=== PATIENT | female | born 1960 | race Caucasian/White ===

== ENCOUNTER 2021-05-23 20:16 | Emergency (ER) | payer MEDICAID ==
[~2021-05-23] VITALS: Ht 152.4 cm; Wt 100.1 kg
[2021-05-23] MEDS ORDERED: CEPH250T PO (23:31)
[2021-05-23] MEDS ORDERED: IBUP-1984 PO (23:31)
[2021-05-23] MEDS ORDERED: ibuprofen tablet 400 MG TABLET PO ONE (23:35)
[2021-05-23 23:50] VITALS: BP 132/60
== END 2021-05-23 23:51 | disposition home or self-care (01) ==
LOC: ER 20:21
DX: M79.672 Pain in left foot (principal); Z88.5 Allergy status to narcotic agent; Z79.2 Long term (current) use of antibiotics; Z79.899 Other long term (current) drug therapy
CPT/HCPCS: 73630; 99284

== ENCOUNTER 2021-05-28 20:08 | Emergency (ER) | payer MEDICAID ==
[~2021-05-28] VITALS: Ht 185.4 cm; Wt 84.1 kg
[~2021-05-28 20:08] MED LIST: CEPH250T PO; IBUP-1984 PO
== END 2021-05-28 21:28 | disposition home or self-care (01) ==
LOC: ER 20:09
DX: S90.852A Superficial foreign body, left foot, initial encounter (principal); X58.XXXA Exposure to other specified factors, initial encounter; Y93.89 Activity, other specified; Y92.89 Other specified places as the place of occurrence of the external cause; Y99.8 Other external cause status
CPT/HCPCS: 99282

== ENCOUNTER 2021-06-13 10:45 | Day surgery (SDC) | payer MEDICAID ==
[2021-06-08 10:16] LABS: BASOPHILS % (AUTO) 0.9 % (0-1); EOSINOPHILS # (AUTO) 0.1 X10'3 (0-0.9); EOSINOPHILS % (AUTO) 4.1 % (0-6); LYMPHOCYTES # (AUTO) 1.1 X10'3 (1.1-4.8); LYMPHOCYTES % (AUTO) 35.9 % (21-51); MEAN CORPUSCULAR HEMOGLOBIN 33.2 PG (27.0-31.0); MEAN CORPUSCULAR HGB CONC 34.2 g/dL (33.0-36.5); MEAN CORPUSCULAR VOLUME 97.1 FL (78-98); MEAN PLATELET VOLUME 9.1 FL (7.4-10.4); MONOCYTES # (AUTO) 0.5 X10'3 (0-0.9); MONOCYTES % (AUTO) 14.7 % (2-12); NEUTROPHILS # (AUTO) 1.4 X10'3 (1.8-7.7); NEUTROPHILS % (AUTO) 44.4 % (42-75); PRE OP HEMATOCRIT 41.5 % (35.0-45.0); PRE OP HEMOGLOBIN 14.2 g/dL (12.0-16.0); PRE OP PLATELET COUNT 117 X10'3 (140-440); RED BLOOD COUNT 4.28 X10'6 (4.20-5.60); RED CELL DISTRIBUTION WIDTH 13.6 % (11.5-14.5)
[2021-06-08 10:33] LABS: ALBUMIN 2.9 G/DL (3.4-5.0); ALBUMIN/GLOBULIN RATIO 0.6 (1.1-1.5); ALKALINE PHOSPHATASE 153 IU/L (46-116); BLOOD UREA NITROGEN 17 MG/DL (7-18); BUN/CREATININE RATIO 27.9 (6.6-38.0); CALCIUM 8.4 MG/DL (8.5-10.1); CHLORIDE 110 MMOL/L (99-107); CREATININE 0.61 MG/DL (0.40-0.90); PRE OP ALT 28 U/L (30-65); PRE OP ANION GAP 7 (8-16); PRE OP AST 41 U/L (10-37); PRE OP BILIRUB, TOTAL 0.5 MG/DL (0.0-1.0); PRE OP GLUCOSE 87 MG/DL (70-104); PRE OP SODIUM 143 MMOL/L (135-145); TOTAL CARBON DIOXIDE 25.9 MMOL/L (24-32); TOTAL PROTEIN 7.8 G/DL (6.4-8.2); eGFR > 90 ML/MIN
[2021-06-08 10:34] LABS: PRE OP POTASSIUM 4.7 MMOL/L (3.4-5.1)
[~2021-06-13] VITALS: Ht 152.4 cm; Wt 105.1 kg
[2021-06-13] MEDS: ringers solution, lacted 1,000 ML IV SCH ×2 (05:00→11:06)
[~2021-06-13 10:45] MED LIST changes: +ALBU17AE26 INH; +CEPH-585 PO; -CEPH250T PO; -IBUP-1984 PO; +LEVO75TA7 PO; +TRAM50TA2 PO; +albuterol 2.5 MG/3 ML nebule NEB PRN; +cefazolin/dext.iso 2gm/100ml IV ONE; +famotidine 20mg tablet PO ONE
[2021-06-13 11:13] VITALS: BP 155/91
[2021-06-13 11:49] LABS: PRE OP PARTIAL THROMB. TIME 27 SECONDS (22-32)
[2021-06-13] MEDS ORDERED: HYDROcodone/acetaminophen 10/325mg tab PO ONE (12:55)
[2021-06-13] MEDS ORDERED: vancomycin 1,000mg inj ONE (13:21)
[2021-06-13] MEDS ORDERED: BUPIVAcaine/PF 2.5mg/ml (0.25%) 10ml vial ONE (13:21)
[2021-06-13] MEDS ORDERED: sevoflurane 250ml liquid IH ONE (14:05)
[2021-06-13] MEDS ORDERED: LIDOcaine 1%/PF 5ML 10 MG/ML VIAL ONE (14:05)
[2021-06-13] MEDS ORDERED: midazolam 1 mg/ML 2ml injection ONE (14:12)
[2021-06-13] MEDS ORDERED: LIDOcaine 2% (20mg/ml) 5ml vial ONE (14:26)
[2021-06-13] MEDS ORDERED: propofol inj 20 ML IV ONE ×2 (14:26→14:38)
[2021-06-13] MEDS ORDERED: ringers solution, lacted 1,000 ML IV SCH (14:30)
[2021-06-13] MEDS ORDERED: ondansetron/PF 4mg/2ml inj IV PRN (14:30)
[2021-06-13] MEDS ORDERED: morphine 4 MG/ML inj SYRINge IV PRN (14:30)
[2021-06-13] MEDS ORDERED: fentaNYL/PF 50MCG/1 ML 2ML syringe IV PRN ×2 (14:30)
[2021-06-13] MEDS ORDERED: labetalol 20mg/4ml (5mg/ml) syringe IV PRN (14:30)
[2021-06-13] MEDS ORDERED: morphine 2 MG/ML inj. syringe IV PRN (14:30)
[2021-06-13] MEDS ORDERED: proCHLORperazine 10 MG/2 ml inj IV PRN (14:30)
[2021-06-13] MEDS ORDERED: hydrALAZINE 20mg/ml inj. IV PRN (14:30)
[2021-06-13] MEDS ORDERED: acetaminophen 1,000mg/100ml IV 100 ML IV PRN (14:30)
[2021-06-13] MEDS ORDERED: fentaNYL/PF 50MCG/1 ML 2ML syringe ONE (14:38)
[2021-06-13] MEDS ORDERED: ondansetron/PF 4mg/2ml inj ONE (14:42)
[2021-06-13] MEDS ORDERED: dexamethasone sod phosphate 4mg/ml inj. ONE (14:43)
[2021-06-13 14:55] VITALS: BP 116/91
--- NOTE | 2021-06-13 14:55 | NUR ---
ADMITTED TO PACU FROM OR ACCOMPANIED BY ANESTHESIA. INTIAL PHYSICAL ASSESSMENT DONE AND RECORDED. REPORT RECEIVED FROM ANESTHESIA.
[2021-06-13 15:05] VITALS: BP 109/69
[2021-06-13 15:15] VITALS: BP 125/79
[2021-06-13 15:25] VITALS: BP 115/78
--- NOTE | 2021-06-13 15:30 | NUR ---
DISCHARGE CRITERIA MET, DISCHARGE INSTRUCTIONS GIVEN, DEMONSTRATES VERBAL UNDERSTANDING. DISCHARGED HOME IN GOOD CONDITION.
== END 2021-06-13 15:30 | disposition home or self-care (01) ==
LOC: PAS 10:45
PROVIDERS: ATTEND Orthopaedic Surgery
DX: T84.84XA Pain due to internal orthopedic prosthetic devices, implants and grafts, initial encounter (principal); F17.210 Nicotine dependence, cigarettes, uncomplicated; J44.9 Chronic obstructive pulmonary disease, unspecified; G43.909 Migraine, unspecified, not intractable, without status migrainosus; E66.9 Obesity, unspecified; Z68.42 Body mass index [BMI] 45.0-49.9, adult; Z20.822 Contact with and (suspected) exposure to COVID-19; Z98.890 Other specified postprocedural states; Z96.651 Presence of right artificial knee joint; Z72.89 Other problems related to lifestyle; Z86.19 Personal history of other infectious and parasitic diseases; Z88.5 Allergy status to narcotic agent; Z79.899 Other long term (current) drug therapy; Z79.01 Long term (current) use of anticoagulants; Y83.8 Other surgical procedures as the cause of abnormal reaction of the patient, or of later complication, without mention of misadventure at the time of the procedure; Y92.89 Other specified places as the place of occurrence of the external cause
CPT/HCPCS: 20680; 36415; 71046; 80053; 82948; 85025; 85610; 85730; 93005; 94640; 94760; J1100; J2001; J2250; J2405; J2704; J3010; J3370; J3490; U0003; U0005; Z7506; Z7512; A4215; A4618; A6449; A7000; J7120